=== PATIENT | male | born 2000 | race Caucasian/White ===

== ENCOUNTER 2021-01-15 13:27 | Emergency (ER) | payer OTHER ==
[2021-01-15] MEDS ORDERED: Ketorolac Tromethamine 30 MG/ML VIAL ONE (14:33)
[2021-01-15] MEDS ORDERED: Ondansetron PF 4 MG/2 ML Vial ONE (14:43)
[2021-01-15 14:46] LABS: #Eosinphils 0.1 10x3/uL (0.0-0.5); #Monocytes 0.5 10x3/uL (0.0-1.1); #Neutrophils 5.3 10x3/uL (1.5-8.4); %Basophils 0.3 % (0.0-2.0); %Eosinophils 0.7 % (0.0-6.0); %Lymphocytes 16.5 % (18.0-47.0); %Monocytes 7.5 % (0.0-10.0); %Neutrophils 74.6 % (40.0-75.0); Hemoglobin 14.7 g/dL (13.5-17.5); Mean Corpuscular HGB CONC 33.9 g/dL (32.0-36.0); Mean Corpuscular Hemoglobin 31.2 pg (27.0-33.0); Mean Corpuscular Volume 91.9 fl (81.2-95.1); Mean Platelet Volume 9.9 fl (7.4-10.4); Platelet Count 199 10x3/uL (150-450); RBC Distribution Width 12.5 % (11.5-14.5); Red Blood Cell (RBC) Count 4.71 10x6/uL (4.32-5.72)
[2021-01-15 15:12] LABS: ALT (SGPT) 28 U/L (8-55); AST (SGOT) 20 U/L (5-34); Albumin 4.5 g/dL (3.5-5.0); Alkaline Phosphatase 69 U/L (40-110); Anion Gap 14 mmol/L (10-20); BUN (Urea Nitrogen) 8 mg/dL (8.9-20.6); Calc. Creatinine Clearance 0 mL/min (70-130); Calcium 9.6 mg/dL (7.8-10.44); Carbon Dioxide 25 mmol/L (22-29); Chloride 104 mmol/L (98-107); Globulin 2.4 g/dL (2.4-3.5); Glucose 107 mg/dL (70-105); Potassium 4.4 mmol/L (3.5-5.1); Protein, Total 6.9 g/dL (6.0-8.3); Sodium 139 mmol/L (136-145)
[2021-01-15 15:25] LABS: Bilirubin Neg (Negative); Blood, Urine 250 (Negative); Glucose, Urine (Dipstick) Normal (Negative); Ketone, Urine 5 mg/dL (Negative); Leukocyte 100 (Negative); Nitrite Negative (Negative); Protein, Urine (Dipstick) 15 mg/dl (Neg-Trace); Urobilinogen Normal mg/dL (Less than 2)
[2021-01-15 15:29] LABS: Clarity Hazy (Clear)
[2021-01-15 15:49] LABS: Bacteria/HPF 1+ HPF (None Seen); Mucous/LPF 2+ LPF (<2+); RBC/HPF Greater than 50 HPF (0-3); Renal Epithelial 0-3 HPF (None Seen); Squamous Epithelial 0-3 HPF (0-3); Transitional Epithelial 0-3 HPF (None Seen)
== END 2021-01-15 17:40 | disposition home or self-care (01) ==
LOC: CSHERS 13:27
DX: N20.1 Calculus of ureter (principal)
CPT/HCPCS: 74018; 80053; 81003; 81015; 85025; 96374; 96375; J1885; J2405

== ENCOUNTER 2021-02-22 00:05 | Emergency (ER) | payer OTHER ==
[2021-02-22] MEDS ORDERED: Dexamethasone 10 MG/ML VIAL ONE (02:16)
[2021-02-22] MEDS ORDERED: Ketorolac Tromethamine 30 MG/ML VIAL ONE (02:16)
== END 2021-02-22 02:53 | disposition home or self-care (01) ==
LOC: CSHERS 00:05
DX: J02.9 Acute pharyngitis, unspecified (principal); F17.290 Nicotine dependence, other tobacco product, uncomplicated; Z86.16 Personal history of COVID-19
CPT/HCPCS: 87081; 87430; 96372; 99283; J1100; J1885

== ENCOUNTER 2023-12-26 19:55 | Emergency (ER) | payer OTHER ==
[2023-12-26 21:11] LABS: #Monocytes 0.6 10x3/uL (0.0-1.1); #Neutrophils 4.5 10x3/uL (1.5-8.4); %Basophils 0.4 % (0.0-2.0); %Eosinophils 0.4 % (0.0-6.0); %Neutrophils 63.9 % (40.0-75.0); Hematocrit 44.4 % (38.8-50.0); Hemoglobin 15.1 g/dL (13.5-17.5); Mean Corpuscular Hemoglobin 30.1 pg (27.0-33.0); Mean Corpuscular Volume 88.4 fl (81.2-95.1); Mean Platelet Volume 9.3 fl (7.4-10.4); Platelet Count 284 10x3/uL (150-450); RBC Distribution Width 11.9 % (11.5-14.5); Red Blood Cell (RBC) Count 5.02 10x6/uL (4.32-5.72)
[2023-12-26 21:29] LABS: ALT (SGPT) 16 U/L (8-55); AST (SGOT) 14 U/L (5-34); Albumin 4.7 g/dL (3.5-5.0); Alkaline Phosphatase 71 U/L (40-110); Anion Gap 12 mmol/L (10-20); BUN (Urea Nitrogen) 12 mg/dL (8.9-20.6); Bilirubin, Total 0.6 mg/dL (0.2-1.2); Calc. Creatinine Clearance 0 mL/min (70-130); Calcium 9.3 mg/dL (7.8-10.44); Carbon Dioxide 24 mmol/L (22-29); Chloride 104 mmol/L (98-107); Estimated GFR 85; Globulin 2.9 g/dL (2.4-3.5); Glucose 87 mg/dL (70-105); Potassium 4.1 mmol/L (3.5-5.1); Protein, Total 7.6 g/dL (6.0-8.3); Sodium 136 mmol/L (136-145)
[2023-12-26 21:35] LABS: Troponin I Less than 0.010 ng/mL (< 0.028)
== END 2023-12-26 22:08 | disposition home or self-care (01) ==
LOC: CSHERS 19:55
DX: R07.89 Other chest pain (principal); R03.0 Elevated blood-pressure reading, without diagnosis of hypertension; F17.290 Nicotine dependence, other tobacco product, uncomplicated
CPT/HCPCS: 36415; 71045; 80053; 84484; 85025; 93005

== ENCOUNTER 2024-04-30 15:30 | Emergency (ER) | payer OTHER, SELFPAY ==
[2024-04-30] MEDS ORDERED: Ondansetron PF 4 MG/2 ML Vial ONE (16:48)
[2024-04-30 17:15] LABS: #Basophils 0.05 10x3/uL (0.0-0.2); #Neutrophils 7.02 10x3/uL (1.5-8.4); %Basophils 0.5 % (0.0-2.0); %Lymphocytes 17.8 % (18.0-47.0); %Monocytes 7.1 % (0.0-10.0); %Neutrophils 71.3 % (40.0-75.0); Hematocrit 45.5 % (38.8-50.0); Hemoglobin 15.9 g/dL (13.5-17.5); Mean Corpuscular HGB CONC 34.9 g/dL (32.0-36.0); Mean Corpuscular Hemoglobin 31.1 pg (27.0-33.0); Mean Platelet Volume 9.4 fL (7.4-10.4); Platelet Count 253 10x3/uL (150-450); RBC Distribution Width 12.6 % (11.5-14.5); Red Blood Cell (RBC) Count 5.11 10x6/uL (4.32-5.72); White Blood Cell (WBC) Count 9.9 10x3/uL (3.5-10.5)
[2024-04-30 17:42] LABS: ALT (SGPT) 19 U/L (8-55); AST (SGOT) 22 U/L (5-34); Albumin 4.7 g/dL (3.5-5.0); Alkaline Phosphatase 93 U/L (40-110); Anion Gap 19 mmol/L (10-20); BUN (Urea Nitrogen) 18 mg/dL (8.9-20.6); Bilirubin, Total 0.5 mg/dL (0.2-1.2); Calc. Creatinine Clearance 0 mL/min (70-130); Calcium 9.5 mg/dL (7.8-10.44); Carbon Dioxide 21 mmol/L (22-29); Chloride 102 mmol/L (98-107); Estimated GFR 84; Globulin 3.1 g/dL (2.4-3.5); Glucose 76 mg/dL (70-105); Potassium 4.8 mmol/L (3.5-5.1); Protein, Total 7.8 g/dL (6.0-8.3); Sodium 137 mmol/L (136-145)
[2024-04-30 17:47] LABS: Troponin I Less than 0.010 ng/mL (< 0.028)
== END 2024-04-30 18:30 | disposition home or self-care (01) ==
LOC: CSHERS 15:30
DX: R00.2 Palpitations (principal); E86.0 Dehydration; F17.290 Nicotine dependence, other tobacco product, uncomplicated; I10 Essential (primary) hypertension
CPT/HCPCS: 36415; 80053; 84484; 85025; 93005; 96374; J2405

== ENCOUNTER 2024-08-13 14:16 | Emergency (ER) | payer OTHER ==
[2024-08-13 15:52] LABS: #Basophils 0.03 10x3/uL (0.0-0.2); #Eosinphils 0.06 10x3/uL (0.0-0.5); #Monocytes 0.49 10x3/uL (0.0-1.1); #Neutrophils 3.82 10x3/uL (1.5-8.4); %Basophils 0.5 % (0.0-2.0); %Eosinophils 0.9 % (0.0-6.0); %Lymphocytes 31.5 % (18.0-47.0); %Monocytes 7.6 % (0.0-10.0); %Neutrophils 59.2 % (40.0-75.0); Hematocrit 42.4 % (38.8-50.0); Hemoglobin 14.6 g/dL (13.5-17.5); Mean Corpuscular HGB CONC 34.4 g/dL (32.0-36.0); Mean Corpuscular Volume 87.2 fL (81.2-95.1); Mean Platelet Volume 9.4 fL (7.4-10.4); Platelet Count 277 10x3/uL (150-450); RBC Distribution Width 12.7 % (11.5-14.5); Red Blood Cell (RBC) Count 4.86 10x6/uL (4.32-5.72); White Blood Cell (WBC) Count 6.5 10x3/uL (3.5-10.5)
[2024-08-13 15:57] LABS: Anion Gap 14 mmol/L (10-20); BUN (Urea Nitrogen) 16 mg/dL (8.9-20.6); Calc. Creatinine Clearance 0 mL/min (70-130); Calcium 9.8 mg/dL (7.8-10.44); Carbon Dioxide 24 mmol/L (22-29); Chloride 103 mmol/L (98-107); Estimated GFR 78; Glucose 93 mg/dL (70-105); Potassium 4.2 mmol/L (3.5-5.1); Sodium 137 mmol/L (136-145)
[2024-08-13 16:05] LABS: Troponin I Less than 0.010 ng/mL (< 0.028)
== END 2024-08-13 18:48 | disposition home or self-care (01) ==
LOC: CSHERS 14:16
DX: R07.89 Other chest pain (principal); I10 Essential (primary) hypertension; E11.9 Type 2 diabetes mellitus without complications; F17.290 Nicotine dependence, other tobacco product, uncomplicated; Z55.6 Problems related to health literacy
CPT/HCPCS: 36416; 71045; 71275; 80048; 84484; 85025; 85379; 93005